=== PATIENT | male | born 1990 | race Caucasian/White ===

== ENCOUNTER 2017-07-17 08:53 | Emergency (ER) | payer BC ==
[~2017-07-17] VITALS: Ht 180.3 cm; Wt 108.8 kg
[~2017-07-17 08:53] MED LIST: MULT-106 PO
[2017-07-17 08:57] VITALS: TEMP 37.2; Ht 180.3 cm; Wt 108.8 kg
[2017-07-17] MEDS ORDERED: KETOROLAC TROMETHAMINE 60 MG/2 ML VIAL IM STA (09:35)
--- NOTE | 2017-07-17 09:59 | DIAGNOSTIC IMAGING REPORT ---
LEFT PELVIS/UNILATERAL HIP 2-3VIEWS CLINICAL HISTORY: LEFT HIP PAIN pain COMPARISON: None. DISCUSSION: The bones and joint spaces appear intact. There is no evidence of fracture, dislocation or bony disease. There is no evidence for soft tissue swelling. IMPRESSION: Negative study. The above report was generated using voice recognition software. It may contain grammatical, syntax or spelling errors. Electronically signed by: Golden Campos M.D. 07/17/2017 9:58 AM Dictated Date/Time: 07/17/2017 9:57 AM
--- NOTE | 2017-07-17 10:02 | EMERGENCY ROOM VISIT NOTE ---
ED Visit Note First contact with patient: 09:14 CHIEF COMPLAINT: Hip pain HISTORY OF PRESENT ILLNESS: This patient complains of moderate left hip pain which is worse with any movement of the leg and much worse with weight bearing, especially walking or running. It has been present for about 2-3 weeks and he doesn't remember any injury before the onset of the pain. He is in the [employer] s training at work and states he has been doing a lot of increased running training, and feels that this may have aggravated his hip. The pain is much worse the last 2 or 3 days and the patient is having a lot of pain with any movement of weight bearing of the left hip. The pain is constant and worse with movement. There is no numbness. There has been no abdominal or back pain. He has tried Tylenol and Motrin for the pain, but has not been using this consistently and has not noticed any improvement with taking this. No other injuries. REVIEW OF SYSTEMS: GENERAL: No fever or chills, easy fatigue, loss of appetite, or significant weight change. NEUROLOGICAL: No headache, change in mental status, weakness, numbness, or dizziness. GASTROINTESTINAL: No abdominal pain, vomiting, loss of appetite, or diarrhea. GENITOURINARY: No pain with or increased frequency of urination, no blood in the urine, no flank pain. PMH: The patient is healthy; there is no significant medical or surgical history. SOCIAL HISTORY: Patient lives at home. Non-smoker, no alcohol use. PHYSICAL EXAM: Vital Signs: Reviewed Nurse's notes. NECK: Supple, non-tender. ABDOMEN: No masses or tenderness, no organs palpable. Bowel sounds normo- active. HIP: The affected hip is tender, not swollen, and the range of motion is somewhat limited secondary to pain. Most pain with flexion and internal rotation of the left hip joint. The skin is normal and there are normal distal pulses and sensation. EMERGENCY DEPARTMENT COURSE: I examined the patient. Differential diagnosis includes hip sprain, strain, tendinitis, bursitis, fracture. X-ray of hip was unremarkable and did not reveal a fracture or any arthritis. I suspect patient has hip flexor injury. He was wrapped with an Manohar wrap and provided with crutches and instructed on their use. He reported improved pain after IM Toradol. Patient was discharged home in stable condition. Current/Historical Medications Scheduled Meloxicam (Mobic), 1 TAB PO DAILY Multiple Vitamins W/ Minerals (One Daily Mens), 1 TABLET PO DAILY Allergies Coded Allergies: No Known Allergies (Unverified , 07/17/17) Vital Signs Date Time Temp Pulse Resp B/P (MAP) Pulse Ox O2 Delivery O2 Flow Rate FiO2 07/17/17 10:56 98 13 127/112 98 07/17/17 08:57 37.2 111 18 159/58 98 Room Air Medications Administered Medications (Trade) Dose Ordered Sig/Ezequiel Route Start Time Stop Time Status Last Admin Dose Admin Ketorolac Tromethamine (Toradol Inj) 60 mg NOW STAT IM 07/17/17 09:35 07/17/17 09:38 DC 07/17/17 09:41 60 MG Departure Information Impression Primary Impression: Left hip pain Additional Impression: Strain of flexor muscle of left hip Dispostion Home / Self-Care Condition GOOD Prescriptions Meloxicam (MOBIC) 15 Mg Tab 1 TAB PO DAILY for 14 Days, #14 TAB 2 Refills Prov: Jasmin Rodas CRNP 07/17/17 Referrals No Doctor, Assigned (PCP) Param Nicholas M.D. Patient Instructions ED Sprain Hip, Hip Flexor Stretch, [facility] Additional Instructions Rest the hip and stay off of the leg as much as possible until the pain subsides , using the crutches. You may also wrap the area with the MANOHAR wrap for comfort. Alternate ice and heat to the affected area for comfort. Take the Mobic daily for the next 2 weeks for pain. Take with food to avoid stomach upset. Do not take any other NSAIDs while you are on this medication ( such as aleve, advil, motrin, etc.) You may continue to take Tylenol 1,000mg every 8 hours as needed for pain. Do not take more than 3,000mg in 24 hours. Follow up with orthopedics in the next week. Call today to make an appointment. Please return to the Emergency Dept for worsening pain in spite of above medications, numbness or tingling in the leg or foot, redness or swelling in the area of pain, or fevers/chills. Problem Qualifiers Additional Impression: Strain of flexor muscle of left hip Encounter type: initial encounter Qualified Codes: S76.012A - Strain of muscle, fascia and tendon of left hip, initial encounter
[2017-07-17] MEDS ORDERED: MELO15TA4 PO (10:23)
[2017-07-17 10:56] VITALS: BP 127/112; PULSE 98; O2SAT 98
== END 2017-07-17 10:57 | disposition home or self-care (01) ==
LOC: C.EDB 08:56 → C.EDC 10:57
DX: M25.552 Pain in left hip (principal); S76.012A Strain of muscle, fascia and tendon of left hip, initial encounter; X58.XXXA Exposure to other specified factors, initial encounter